=== PATIENT | male | born 1965 | race African-American/Black ===

== ENCOUNTER 2018-01-12 11:31 | Emergency (ER) | payer OTHER ==
[~2018-01-12] VITALS: Ht 170.2 cm; Wt 73.0 kg
[~2018-01-12 11:31] MED LIST: ALBU8.5H8 IH; ASPI-556 PO; CORTSOL OT; CYCL10TA7 PO; IPRAHFA IH; LISI20TA PO; METF500T4 PO; MORP30; SIMV20TA6 PO
[2018-01-12 11:39] VITALS: BP 146/101
[2018-01-12] MEDS ORDERED: OXYC-43 PO (11:42)
[2018-01-12 11:48] LABS: GLUCOSE,POINT OF CARE 100 MG/DL (70-110)
== END 2018-01-12 14:17 | disposition left against medical advice (07) ==
LOC: EMS 11:38
DX: M54.9 Dorsalgia, unspecified (principal); Z53.21 Procedure and treatment not carried out due to patient leaving prior to being seen by health care provider
CPT/HCPCS: 82962

== ENCOUNTER 2018-01-25 14:48 | Emergency (ER) | payer OTHER ==
[~2018-01-25] VITALS: Ht 170.2 cm; Wt 79.5 kg
[~2018-01-25 14:48] MED LIST changes: -CORTSOL OT; +METF-444 PO; -METF500T4 PO; -MORP30; +OXYC-43 PO
[2018-01-25] MEDS ORDERED: METF500T6 PO (14:54)
[2018-01-25 15:02] LABS: GLUCOSE,POINT OF CARE 107 MG/DL (70-110)
[2018-01-25] MEDS ORDERED: DIAZEPAM 5 MG TABLET PO ONE (15:45)
[2018-01-25] MEDS ORDERED: KETOROLAC TROMETHAMINE 60 MG/2 ML VIAL IM ONE (15:45)
[2018-01-25 16:24] VITALS: BP 155/89
== END 2018-01-25 16:25 | disposition home or self-care (01) ==
LOC: EMS 14:49
DX: S39.012A Strain of muscle, fascia and tendon of lower back, initial encounter (principal); I10 Essential (primary) hypertension; E78.00 Pure hypercholesterolemia, unspecified; E11.9 Type 2 diabetes mellitus without complications; J45.909 Unspecified asthma, uncomplicated; F17.210 Nicotine dependence, cigarettes, uncomplicated; X58.XXXA Exposure to other specified factors, initial encounter; Y93.89 Activity, other specified; Y92.89 Other specified places as the place of occurrence of the external cause; Y99.8 Other external cause status
CPT/HCPCS: 82962; 96372; 99283; J1885

== ENCOUNTER 2021-12-26 00:20 | Emergency (ER) | payer OTHER ==
[~2021-12-26] VITALS: Ht 167.6 cm; Wt 81.0 kg
[~2021-12-26 00:20] MED LIST changes: -ASPI-556 PO; +CYCL10TA16 PO; -CYCL10TA7 PO; +METF-1211 PO; -METF-444 PO; +SIMV-43 PO; -SIMV20TA6 PO
[2021-12-26] MEDS: ACETAMINOPHEN 500 MG TABLET PO ONE (01:00)
[2021-12-26] MEDS: IBUPROFEN 600 MG TABLET PO ONE (01:00)
[2021-12-26] MEDS: OxyCODONE HCL/ACETAMINOPHEN 5-325 MG TABLET PO ONE (01:46)
[2021-12-26 03:27] VITALS: BP 121/77
== END 2021-12-26 04:15 | disposition home or self-care (01) ==
LOC: EMS 00:21
DX: S52.601A Unspecified fracture of lower end of right ulna, initial encounter for closed fracture (principal); J45.909 Unspecified asthma, uncomplicated; E11.9 Type 2 diabetes mellitus without complications; E78.00 Pure hypercholesterolemia, unspecified; I10 Essential (primary) hypertension; M81.0 Age-related osteoporosis without current pathological fracture; F17.210 Nicotine dependence, cigarettes, uncomplicated; W22.8XXA Striking against or struck by other objects, initial encounter; Y93.89 Activity, other specified; Y92.89 Other specified places as the place of occurrence of the external cause; Y99.8 Other external cause status
CPT/HCPCS: 99284; 73110-TC; 73130-TC; Z7502; Z7610